=== PATIENT | male | born 1960 | race Caucasian/White ===

== ENCOUNTER 2024-07-09 08:42 | Outpatient (CLI) | payer MEDICARE, OTHER, SELFPAY | END 2024-07-09 08:43 | disposition home or self-care (01) | LOC: MICIMG 08:44 | PROVIDERS: PCP Family Medicine; Visit Provider Internal Medicine Hematology & Oncology | DX: D69.59 Other secondary thrombocytopenia (principal); K76.0 Fatty (change of) liver, not elsewhere classified | CPT/HCPCS: 76700 ==

== ENCOUNTER 2025-03-25 13:44 | Outpatient (CLI) | payer MEDICARE, OTHER, SELFPAY ==
--- NOTE | ~2025-03-25 | US_ITS ---
EXAMINATION: US venous doppler [facility] DATE: 03/25/2025 14:49 INDICATION: 64-year-old with swelling and pain of both lower extremities. Left knee pain. TECHNIQUE: Grayscale ultrasound images without and with compression and Doppler ultrasound images of the bilateral lower extremity veins were obtained. COMPARISON: None previous available. FINDINGS: The visualized portions of right common femoral vein, profunda (deep) femoral vein, femoral vein, popliteal vein, peroneal veins, posterior tibial veins, and greater saphenous vein outflow are patent. The visualized portions of left common femoral vein, profunda femoral vein, femoral vein, popliteal vein, peroneal veins, posterior tibial veins, and greater saphenous vein outflow are patent. 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 IMPRESSION: 1. No deep venous thrombosis in both lower extremities. 2. Complex cyst in the left popliteal fossa as described above suggestive of likely Campos's cyst.. Reviewed, dictated and finalized at location [facility] IMPRESSION: 1. No deep venous thrombosis in both lower extremities. 2. Complex cyst in the left popliteal fossa as described above suggestive of li leandro Campos's cyst..
== END 2025-03-25 13:45 | disposition home or self-care (01) ==
PROVIDERS: PCP Family Medicine; Visit Provider Family Medicine
DX: R22.43 Localized swelling, mass and lump, lower limb, bilateral (principal); M71.22 Synovial cyst of popliteal space [Baker], left knee
CPT/HCPCS: 93970